=== PATIENT | female | born 1995 | race Two or more races ===

== ENCOUNTER → 2020-02-15 | Outpatient (CLI) | payer MEDICAID ==
[2020-02-15 08:58] LABS: Basophils # (auto) 0 10 ^3/uL (0-0.2); Basophils % (auto) 0.5 % (0.0-2.0); Eosinophils # (auto) 0.1 10 ^3/uL (0-0.8); Eosinophils % (auto) 1.1 % (0.0-7.0); Hematocrit 35.1 % (36.0-46.0); Hemoglobin 11.9 g/dL (12.2-16.2); Lymphocytes # (auto) 1.8 10 ^3/uL (0.4-5.4); Lymphocytes % (auto) 18.4 % (10.0-50.0); Mean Corpuscular Hemoglobin 29.6 pg (28.0-32.0); Mean Corpuscular Hgb Conc. 33.9 g/dL (32.0-36.0); Mean Corpuscular Volume 87.3 fL (80.0-100.0); Monocytes # (auto) 0.4 10 ^3/uL (0-1.3); Monocytes % (auto) 4.4 % (0.0-12.0); Neutrophils # (auto) 7.5 10 ^3/uL (1.6-8.6); Neutrophils % (auto) 75.6 % (37.0-80.0); Platelet Count (auto) 290 10^3/uL (140-450); Red Blood Cells 4.02 10^6/uL (4.0-5.20); Red Cell Distribution Width 14.7 % (11.8-14.3)
== END | disposition home or self-care (01) ==
LOC: LAB 08:35
PROVIDERS: ATTEND Obstetrics & Gynecology
DX: O99.810 Abnormal glucose complicating pregnancy (principal); Z3A.26 26 weeks gestation of pregnancy
CPT/HCPCS: 36415; 82951; 85025

== ENCOUNTER 2020-04-21 21:41 | Inpatient (IN) | payer MEDICAID ==
[~2020-04-21] VITALS: Ht 167.6 cm; Wt 93.9 kg
[2020-04-21] MEDS ORDERED: PREN-96 PO (22:17)
[2020-04-21] MEDS ORDERED: PREN27TA7 OR (22:19)
[2020-04-21 23:39] LABS: Basophils # (auto) 0 10 ^3/uL (0-0.2); Basophils % (auto) 0.3 % (0.0-2.0); Eosinophils # (auto) 0.1 10 ^3/uL (0-0.8); Hematocrit 35.4 % (36.0-46.0); Hemoglobin 11.8 g/dL (12.2-16.2); Lymphocytes # (auto) 1.3 10 ^3/uL (0.4-5.4); Lymphocytes % (auto) 17.9 % (10.0-50.0); Mean Corpuscular Hemoglobin 28.7 pg (28.0-32.0); Mean Corpuscular Hgb Conc. 33.4 g/dL (32.0-36.0); Monocytes # (auto) 0.3 10 ^3/uL (0-1.3); Monocytes % (auto) 4.8 % (0.0-12.0); Neutrophils # (auto) 5.4 10 ^3/uL (1.6-8.6); Nucleated Red Blood Cells % 0.1 %; Platelet Count (auto) 198 10^3/uL (140-450); Red Blood Cells 4.11 10^6/uL (4.0-5.20); Red Cell Distribution Width 15.9 % (11.8-14.3); White Blood Cell 7.1 10^3/uL (4.4-10.8)
[2020-04-21 23:42] LABS: Urine Bacteria FEW /hpf (None Seen); Urine Blood Negative /uL (Negative); Urine Mucus FEW (None Seen); Urine Specific Gravity 1.023 (1.001-1.035); Urine WBC 2 /hpf (0 - 5)
[2020-04-21 23:53] LABS: INR 0.88 (0.9-1.15); Partial Thromboplastin Time 29.4 sec (23.0-31.2)
[2020-04-21 23:54] LABS: Albumin 2.3 g/dL (3.4-5.0); Calcium 8.8 mg/dL (8.5-10.1); Potassium 3.7 mmol/L (3.5-5.1)
[2020-04-21 23:55] LABS: Protein, Urine 103.4 mg/dL (0.0-11.9)
[2020-04-21 23:59] LABS: BUN/Creatinine Ratio 15.6; Bilirubin, Total 0.2 mg/dL (0.2-1.0); Total Protein 6.7 g/dL (6.4-8.2); Uric Acid 5.9 mg/dL (2.6-6.0)
[2020-04-22] MEDS ORDERED: DERMOPLAST 60ML BOTTLE TOP PRN (00:15)
[2020-04-22] MEDS: LACTATED RINGER'S 1,000 ML IV SCH (00:15)
[2020-04-22] MEDS ORDERED: LIDOCAINE 2%HCL (LOCAL ANESTH.) INJ 20ML MDV IJ ONE (00:15)
[2020-04-22] MEDS ORDERED: LACT. RINGERS/OXYTOCIN 20UNITS 1,000 ML IV ONE (00:15)
[2020-04-22] MEDS ORDERED: PHISODERM TOP SOLN 240ML BTL TOP PRN (00:15)
[2020-04-22] MEDS ORDERED: WITCH HAZEL-GLYCERIN PAD TOP PRN (00:15)
[2020-04-22] MEDS: miSOPROStol 50 MCG per PRE-CUT 1/2 TAB PO PRN ×4 (00:47→20:41)
[2020-04-22 20:28] LABS: Basophils # (auto) 0 10 ^3/uL (0-0.2); Basophils % (auto) 0.3 % (0.0-2.0); Eosinophils # (auto) 0.2 10 ^3/uL (0-0.8); Eosinophils % (auto) 2.3 % (0.0-7.0); Hematocrit 33.8 % (36.0-46.0); Hemoglobin 11.5 g/dL (12.2-16.2); Lymphocytes # (auto) 1.7 10 ^3/uL (0.4-5.4); Lymphocytes % (auto) 25.8 % (10.0-50.0); Mean Corpuscular Hemoglobin 29.3 pg (28.0-32.0); Mean Corpuscular Hgb Conc. 33.9 g/dL (32.0-36.0); Mean Corpuscular Volume 86.5 fL (80.0-100.0); Monocytes # (auto) 0.4 10 ^3/uL (0-1.3); Monocytes % (auto) 5.8 % (0.0-12.0); Neutrophils # (auto) 4.3 10 ^3/uL (1.6-8.6); Neutrophils % (auto) 65.8 % (37.0-80.0); Nucleated Red Blood Cells % 0.2 %; Platelet Count (auto) 193 10^3/uL (140-450); Red Cell Distribution Width 15.5 % (11.8-14.3); White Blood Cell 6.5 10^3/uL (4.4-10.8)
[2020-04-22 20:51] LABS: Albumin 2.1 g/dL (3.4-5.0); Calcium 8.2 mg/dL (8.5-10.1); Potassium 3.8 mmol/L (3.5-5.1)
[2020-04-22 20:54] LABS: BUN/Creatinine Ratio 16.4; Bilirubin, Total 0.2 mg/dL (0.2-1.0); Total Protein 6.2 g/dL (6.4-8.2)
[2020-04-22 22:00] LABS: Urine Bacteria FEW /hpf (None Seen); Urine Blood Negative /uL (Negative); Urine Mucus FEW (None Seen); Urine Specific Gravity 1.014 (1.001-1.035); Urine WBC 4 /hpf (0 - 5)
[2020-04-22] MEDS ORDERED: BUTORPHANOL TARTRATE 2 MG/1 ML VIAL ONE (23:14)
[2020-04-22] MEDS ORDERED: PROMETHAZINE HCL 25 MG/ML 1ML ONE (23:14)
[2020-04-22] MEDS ORDERED: PROMETHAZINE HCL 25 MG/ML 1ML IV PRN (23:15)
[2020-04-22] MEDS ORDERED: BUTORPHANOL TARTRATE 2 MG/1 ML VIAL IV PRN (23:15)
[2020-04-23] VITALS (7 sets, daily range): BP systolic 120–152; BP diastolic 66–94
[2020-04-23] MEDS: miSOPROStol 50 MCG per PRE-CUT 1/2 TAB PO PRN (00:41)
[2020-04-23] MEDS ORDERED: LACT. RINGERS/OXYTOCIN 20UNITS 1,000 ML IV ONE ×4 (04:05→16:15)
[2020-04-23] MEDS ORDERED: LACTATED RINGER'S 1,000 ML IV ONE (04:45)
[2020-04-23] MEDS ORDERED: ePHEDrine SULFATE 50 MG/ML AMP IV ONE (04:45)
[2020-04-23] MEDS ORDERED: ROPIVACAINE HCL 200 ML EPI SCH (04:45)
[2020-04-23] MEDS ORDERED: NALOXONE HCL 0.4 MG/ML VIAL IV ONE (04:45)
[2020-04-23] MEDS ORDERED: LACTATED RINGER'S 500 ML IV ONE (04:45)
[2020-04-23 05:07] LABS: RPR Non Reactive (Non Reactive)
[2020-04-23] MEDS ORDERED: fentaNYL CITRATE 100 MCG/2 ML VL ONE ×3 (05:34→16:03)
[2020-04-23] MEDS: LACTATED RINGER'S 1,000 ML IV SCH ×2 (07:44→14:45)
[2020-04-23] MEDS ORDERED: TERBUTALINE SULFATE 1 MG/ML 1ML VIAL SC ONE ×2 (07:45→09:30)
[2020-04-23] MEDS ORDERED: ceFAZolin 1GM 2 GM in D5W 5% 100 ML IV ONE (09:15)
[2020-04-23] MEDS ORDERED: LIDOCAINE 2%HCL (LOCAL ANESTH.) INJ 20ML MDV IJ ONE (09:30)
[2020-04-23] MEDS ORDERED: OXYTOCIN 20 UNT in SODIUM CHLORIDE 0.9% 1,000 ML IV ONE (09:30)
[2020-04-23] MEDS ORDERED: ACETAMINOPHEN IV 1000 MG/100ML (10MG/ML) IV PRN (12:15)
[2020-04-23] MEDS ORDERED: LIDOCAINE HCL 2 %PF INJ 10ML AMP IJ ONE (15:12)
[2020-04-23] MEDS ORDERED: MORPHINE SULF(PF) 0.5MG/ML 10ML VIAL ONE (15:16)
[2020-04-23] MEDS ORDERED: METOCLOPRAMIDE HCL 5MG/ml INJ 2ml VIAL ONE (15:35)
[2020-04-23] MEDS ORDERED: MIDAZOLAM HCL 1MG/1ML-2 ML VIAL ONE (15:59)
[2020-04-23] MEDS ORDERED: NALOXONE HCL 0.4 MG/ML VIAL IV PRN ×2 (16:15)
[2020-04-23] MEDS ORDERED: GUM (CHEWING) 1 GUM CHEW CHEW ONE (16:15)
[2020-04-23] MEDS ORDERED: diphenhdrAMINE HCL 50 MG/1 ML VL IV PRN (16:15)
[2020-04-23] MEDS ORDERED: KETOROLAC TROMETH 30 MG/ML 1ML VIAL IV PRN (16:15)
[2020-04-23] MEDS ORDERED: ONDANSETRON HCL 4 MG/2 ML VIAL IV PRN ×3 (16:15)
[2020-04-23] MEDS ORDERED: HYDROmorphone HCL 2 MG/ML VL IV PRN (16:15)
[2020-04-23] MEDS ORDERED: HYDROmorphone HCL 2 MG/ML VL IV ONE ×2 (16:42→16:57)
[2020-04-23] MEDS ORDERED: ceFAZolin 1GM/50ML 50 ML IV SCH ×2 (17:00→18:00)
[2020-04-23] MEDS: ceFAZolin 1GM/50ML 50 ML IV SCH (18:27)
[2020-04-23] MEDS ORDERED: ALBUTEROL SULF 2.5 MG/0.5ML(0.5%) NEB SOLN NEB PRN ×2 (18:30→23:00)
[2020-04-23 22:20] LABS: Basophils # (auto) 0 10 ^3/uL (0-0.2); Basophils % (auto) 0.3 % (0.0-2.0); Eosinophils # (auto) 0 10 ^3/uL (0-0.8); Eosinophils % (auto) 0.4 % (0.0-7.0); Hematocrit 27.2 % (36.0-46.0); Hemoglobin 9.4 g/dL (12.2-16.2); Lymphocytes # (auto) 1.6 10 ^3/uL (0.4-5.4); Lymphocytes % (auto) 13.9 % (10.0-50.0); Mean Corpuscular Hemoglobin 29.6 pg (28.0-32.0); Mean Corpuscular Hgb Conc. 34.6 g/dL (32.0-36.0); Mean Corpuscular Volume 85.6 fL (80.0-100.0); Monocytes # (auto) 0.6 10 ^3/uL (0-1.3); Monocytes % (auto) 5.6 % (0.0-12.0); Neutrophils % (auto) 79.8 % (37.0-80.0); Nucleated Red Blood Cells % 0.2 %; Platelet Count (auto) 177 10^3/uL (140-450); Red Blood Cells 3.18 10^6/uL (4.0-5.20); Red Cell Distribution Width 15.9 % (11.8-14.3); White Blood Cell 11.3 10^3/uL (4.4-10.8)
[2020-04-23] MEDS: MORPHINE SULFATE 4 MG/ML SYR/VIAL IV PRN (23:21)
[2020-04-24] VITALS (11 sets, daily range): BP systolic 118–140; BP diastolic 64–90
[2020-04-24] MEDS ORDERED: ACETAMINOPHEN IV 1000 MG/100ML (10MG/ML) IV PRN (00:45)
[2020-04-24] MEDS: ceFAZolin 1GM/50ML 50 ML IV SCH ×2 (02:57→10:45)
[2020-04-24] MEDS: MORPHINE SULFATE 4 MG/ML SYR/VIAL IV PRN (07:18)
[2020-04-24 08:32] LABS: Basophils # (auto) 0 10 ^3/uL (0-0.2); Basophils % (auto) 0.3 % (0.0-2.0); Eosinophils # (auto) 0.1 10 ^3/uL (0-0.8); Eosinophils % (auto) 0.6 % (0.0-7.0); Hematocrit 27.4 % (36.0-46.0); Hemoglobin 9.5 g/dL (12.2-16.2); Lymphocytes # (auto) 2.1 10 ^3/uL (0.4-5.4); Lymphocytes % (auto) 20.6 % (10.0-50.0); Mean Corpuscular Hemoglobin 29.9 pg (28.0-32.0); Mean Corpuscular Hgb Conc. 34.7 g/dL (32.0-36.0); Mean Corpuscular Volume 86.2 fL (80.0-100.0); Monocytes # (auto) 0.5 10 ^3/uL (0-1.3); Monocytes % (auto) 5.2 % (0.0-12.0); Neutrophils # (auto) 7.4 10 ^3/uL (1.6-8.6); Neutrophils % (auto) 73.3 % (37.0-80.0); Platelet Count (auto) 174 10^3/uL (140-450); Red Blood Cells 3.18 10^6/uL (4.0-5.20); White Blood Cell 10.1 10^3/uL (4.4-10.8)
[2020-04-24] MEDS ORDERED: HYDROcodone-ACET 5/325MG TAB PO PRN (11:30)
[2020-04-24] MEDS: SIMETHICONE 80 MG CHEWABLE TABLET PO SCH ×3 (12:01→22:15)
[2020-04-24] MEDS: HYDROcodone-ACET 5/325MG TAB PO PRN ×2 (12:02→16:18)
[2020-04-24] MEDS: IBUPROFEN 800 MG TAB PO PRN (17:34)
[2020-04-24] MEDS: DOCUSATE SOD 100 MG CAP PO SCH (22:15)
[2020-04-25] MEDS: HYDROcodone-ACET 5/325MG TAB PO PRN ×3 (00:18→17:41)
[2020-04-25 03:00] VITALS: BP 142/90
[2020-04-25] MEDS: IBUPROFEN 800 MG TAB PO PRN ×2 (03:17→11:40)
[2020-04-25] MEDS: SIMETHICONE 80 MG CHEWABLE TABLET PO SCH ×4 (05:38→22:32)
[2020-04-25 07:00] VITALS: BP 126/76
[2020-04-25] MEDS: DOCUSATE SOD 100 MG CAP PO SCH ×2 (10:07→22:32)
[2020-04-25 11:30] VITALS: BP 127/72
[2020-04-25 15:00] VITALS: BP 117/86
[2020-04-25 19:30] VITALS: BP 128/78
[2020-04-25 23:00] VITALS: BP 128/81
[2020-04-26 03:00] VITALS: BP 128/76
[2020-04-26] MEDS ORDERED: SIMETHICONE 80 MG CHEWABLE TABLET ONE (05:53)
[2020-04-26] MEDS: SIMETHICONE 80 MG CHEWABLE TABLET PO SCH (05:57)
[2020-04-26 07:30] VITALS: BP 125/79
[2020-04-26] MEDS: DOCUSATE SOD 100 MG CAP PO SCH (10:18)
[2020-04-26 10:40] VITALS: BP 125/78
[2020-04-26 10:58] VITALS: BP 125/78
== END 2020-04-26 10:58 | disposition home or self-care (01) | DRG 540 ==
LOC: LDRP 21:41 → OBSVTOIN 21:41 → LDRP 23:21 → UNDODISIN 04-26 10:52
PROVIDERS: ADMIT Specialist; ATTEND Specialist
PROC: 10H07YZ Insertion of Other Device into Products of Conception, Via Natural or Artificial Opening (ICD-10-PCS; 2020-04-23)
PROC: 10D00Z1 Extraction of Products of Conception, Low, Open Approach (ICD-10-PCS; principal; 2020-04-23 15:24)
DX: O62.0 Primary inadequate contractions (principal); O36.63X0 Maternal care for excessive fetal growth, third trimester, not applicable or unspecified; O12.14 Gestational proteinuria, complicating childbirth; O13.4 Gestational [pregnancy-induced] hypertension without significant proteinuria, complicating childbirth; Z3A.39 39 weeks gestation of pregnancy; Z37.0 Single live birth; Z20.822 Contact with and (suspected) exposure to COVID-19
CPT/HCPCS: 36415; 59025; 59200; 62282; 71045; 76818; 80053; 81001; 81002; 82570; 84156; 84550; 85025; 85362; 85379; 85610; 85730; 86592; 86850; 86900; 86901; 87426; 94760; 96360; 96361; 96365; 96366; 96374; G0378; J0131; J0690; J2250; J2590; J7060